=== PATIENT | male | born 1955 | race Two or more races ===

== ENCOUNTER → 2020-01-15 | Day surgery (SDC) | payer BC ==
[~2020-01-15] MED LIST: BUPIVACAINE 0.25% INJ 50ML VIAL ONE; LIDOCAINE 1% HCL (LOCAL ANESTH.) INJ 20ML MDV ONE; ceFAZolin 1GM/50ML 50 ML IV ONE
[2020-01-15 11:40] VITALS: BP 157/93
== END | disposition home or self-care (01) ==
LOC: SUR 08:15
PROVIDERS: ATTEND Orthopaedic Surgery Hand Surgery
DX: R22.32 Localized swelling, mass and lump, left upper limb (principal); D17.22 Benign lipomatous neoplasm of skin and subcutaneous tissue of left arm; Z20.828 Contact with and (suspected) exposure to other viral communicable diseases; Z98.890 Other specified postprocedural states; Z79.899 Other long term (current) drug therapy
CPT/HCPCS: 26115; 36415; 64450; 87426; 88304; J0690; J2001; J3490